=== PATIENT | male | born 1985 | race Caucasian/White ===

== ENCOUNTER 2020-05-23 08:12 | Emergency (ER) | payer OTHER, SELFPAY ==
--- NOTE | ~2020-05-23 | XR_ITS ---
EXAMINATION: XR chest 2V DATE: 05/23/2020 09:07 INDICATION: Upper back pain. TECHNIQUE: Frontal and lateral views of the chest were obtained. COMPARISON: None. FINDINGS: The chest demonstrates clear lungs without pneumonia, pleural effusion, or pneumothorax. Th e heart size is normal. IMPRESSION: 1. No acute cardiopulmonary disease. Reviewed, dictated and finalized at location A. HER
[2020-05-23 08:23] VITALS: BP 156/83; PULSE 78; RESP 18; TEMP 37.3; O2SAT 99
--- NOTE | 2020-05-23 09:10 | ED.BACK ---
HPI - Back Pain/Injury General Chief Complaint: Back Pain/Injury Stated Complaint: back pain Source: patient and RN notes reviewed Limitations: no limitations History of Present Illness HPI Narrative: The obese patient, remote ex-smoker/rare drinker, presents with thoracic back pain. 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 He came into work this morning after uneventful night and morning, and experienced the abrupt onset of upper/thoracic back pain while at rest. This hunched him over, unrelieved by 600mg Motrin 0700 and he was unable to drive himself here. No fever, cough, loss of taste/smell, precordial CP, calf pain/edema. Symptoms are mild worse with activity; vital signs remarkable for mild hypertension. [id number] urinalysis noncontributory, chest x-ray done unremarkable Related Data Allergies Allergy/AdvReac Type Severity Reaction Status Date / Time Penicillins Allergy Rash Verified 05/23/20 08:43 Review of Systems Review of Systems: Narrative: The patient has been informed that they may have pre-hypertension or Hypertension based on a BP reading in the department. I recommend that the patient call the primary care provider listed on their discharge instructions or a physician of their choice this week to arrange follow up for further evaluation of possible pre-hypertension or Hypertension General/Constitutional: No weight loss,fever Eyes: N0: Redness,discharge Ears/Nose/Throat: No: Epistaxis,ear discharge Respiratory: Denies: Hemoptysis Gastrointestinal: No Vomiting, Bleeding-rectal Skin: No Lumps, eruption Neurologic: No Focal Weakness,Sz Hematologic: Denies: Petechiae/Purpura Psychiatric: No: Suicida ideationl All Other Systems: Reviewed and Negative [facility] Comments At time of signature, agree with nursing past medical, surgical, social and family history. There is no relevant family history pertinent to the presenting complaint Exam Narrative: Exam Narrative: General Appearance: Obese appearing, mild pain EYE: PERRLA, Conjunctiva clear Ears: External ear normal Nose: Normal nose Mouth/Throat: Normal appearing, Normal lips Neck: Supple Respiratory: Airway patent, No respiratory distress, CTA distant sounds Cardiovascular: RRR, symmetric pulses Abdomen: Soft, Non-tender, Musculoskeletal: Full ROM, tender rhomboid on left Skin: Warm, Dry Neurological: A&O x3, CN II-X intact Psychiatric: Normal mood, Normal affect Course Course Emergency Course: Films visualized, interpreted by radiologist, agree, normal see report Vital Signs Vital signs: Vital Signs Temperature 99.2 F 05/23/20 08:23 Pulse Rate 78 05/23/20 08:23 Respiratory Rate 18 05/23/20 08:23 Blood Pressure 156/83 H 05/23/20 08:23 Pulse Oximetry 99 05/23/20 08:23 Temperature 99.2 F 05/23/20 08:23 Pulse Rate 78 05/23/20 08:23 Respiratory Rate 18 05/23/20 08:23 Blood Pressure 156/83 H 05/23/20 08:23 Pulse Oximetry 99 05/23/20 08:23 MDM - Back Pain/Injury Lab Data Labs: Urine Glucose Negative Reference Range: Negative Urine Bilirubin Negative Reference Range: Negative Urine Ketone Trace Reference Range: Negative Urine Specific [place] 1.025 Reference Range:1.001-1.035 Urine Blood Negative Reference Range: Negative * * Urine pH 7.0 Reference Range: 5.0-9.0 Urine Protein 1+ Reference Range: Negative Ur
[2020-05-23] MEDS: KETOROLAC (*BKC) 60 MG/2 ML VIAL IM (09:18)
[2020-05-23] MEDS: predniSONE 20 MG TABLET 40 MG PO (09:19)
== END 2020-05-23 10:12 | disposition short-term general hospital (02) ==
PROVIDERS: Emergency Provider Emergency Medicine
DX: M54.6 Pain in thoracic spine (principal)
CPT/HCPCS: 71046; 81003; 96372; 99213; G0463; J1885; J7512

== ENCOUNTER 2020-05-23 11:04 | Emergency (ER) | payer OTHER, SELFPAY ==
[2020-05-23 11:14] VITALS: BP 149/80; PULSE 73; RESP 18; TEMP 36.6; O2SAT 98
[2020-05-23 12:00] LABS: Basophils Percent Auto 0.3 % (0.2-1.2); Eosinophils Percent Auto 0.2 % (0-4.4); Hematocrit 49.3 % (42.0-52.0); Immature Granulocyte Absolute 0.02 K/mm3 (0.00-0.031); Immature Granulocyte Percent A 0.2 % (0-0.5); Lymphocytes Absolute Auto 0.95 K/mm3 (0.9-3.2); Lymphocytes Percent Auto 10.8 % (18.3-44.2); Mean Corpuscular HGB Conc 34.5 g/dl (32-36); Mean Corpuscular Hemoglobin 30.7 pg (26-34); Mean Corpuscular Volume 89.2 fl (80-100); Mean Platelet Volume 10.7 fl (7.4-10.4); Monocytes Absolute Auto 0.3 K/mm3 (0.1-0.6); Monocytes Percent Auto 3.5 % (2.6-8.5); Neutrophils Absolute Auto 7.4 K/mm3 (1.3-6.7); Platelet Count Result 236 k/mm3 (150-375); Red Blood Count 5.53 M/mm3 (4.6-6.20); Red Cell Distribution Width 12.7 % (11.5-14.5); White Blood Count 8.8 K/mm3 (4.5-10.0)
[2020-05-23 12:10] LABS: INR 0.9; Prothrombin Time 13.2 Seconds (11.1-14.7)
[2020-05-23 12:11] LABS: Partial Thromboplastin Time 28.7 SECONDS (22.3-36.8)
--- NOTE | 2020-05-23 12:13 | ED.BACK ---
HPI - Back Pain/Injury General Chief Complaint: Back Pain/Injury Stated Complaint: THORACIC BACK PAIN Time Seen by Provider: 05/23/20 11:38 Source: patient Mode of arrival: ambulatory Limitations: no limitations History of Present Illness HPI Narrative: This is a 34 year old male that presents to the ER for thoracic back pain that started this morning. Reports no injuries or trauma. The pain is worse with movement and deep breathing. Patient was seen at urgent care and sent for further evaluation to r/o PE. He was given steroid and Toradol with improvement. Reports a chronic cough. Denies fever, shortness of breath or chest pain. Related Data Allergies Allergy/AdvReac Type Severity Reaction Status Date / Time Penicillins Allergy Rash Verified 05/23/20 11:18 Review of Systems Review of Systems: Narrative: CONSTITUTIONAL: Denies fever CARDIOVASCULAR: Denies chest pain, or edema. RESPIRATORY: Reports cough. Denies dyspnea. GENITOURINARY: Denies dysuria or hematuria. SKIN: Denies rash MUSCULOSKELETAL: Reports back pain, joint pain, and myalgia. NEUROLOGIC: Denies numbness, or weakness. All systems reviewed & are unremarkable except as noted in HPI and below PMFSH Past Medical History Medical History (Updated 05/23/20 @ 13:47 by Cate Narayan PA-C) No active medical problems Social History Social History (Updated 05/23/20 @ 12:30 by Cate Narayan PA-C) Smoking status: Never smoker Substance use: never Exam Narrative: Exam Narrative: GENERAL: Well-appearing, well-nourished, and in no acute distress. HEAD: Normocephalic, atraumatic. EYES: EOMI. CHEST: Clear to auscultation. No respiratory distress. No wheezes rales or rhonchi HEART: Regular rate and rhythm. No murmur heard. Normal peripheral pulses. BACK: No midline spinal tenderness EXTREMITIES: Normal range of motion. No edema. Strength equal in bilateral upper extremities (5/5) SKIN: Warm, dry, no rash. NEURO: No focal deficits. Alert and oriented x3. PSYCH: Normal mood and affect Course Vital Signs Vital signs: Vital Signs Temperature 97.8 F 05/23/20 11:14 Pulse Rate 73 05/23/20 11:14 Respiratory Rate 18 05/23/20 11:14 Blood Pressure 149/80 H 05/23/20 11:14 Pulse Oximetry 98 05/23/20 11:14 Temperature 97.8 F 05/23/20 11:14 Pulse Rate 73 05/23/20 11:14 Respiratory Rate 18 05/23/20 11:14 Blood Pressure 149/80 H 05/23/20 11:14 Pulse Oximetry 98 05/23/20 11:14 MDM - Back Pain/Injury MDM Narrative Medical decision making narrative: Patient presents emergency department for thrush back pain since this morning. No known injury or trauma. He is neurologically intact. CBC and metabolic panel without concerning findings. CRP is not elevated. D-dimer is not elevated. Oxygen saturation is normal on room air. Chest x-ray done at urgent care is without acute cardiopulmonary findings. Patient updated on case findings. He reports improvement with Toradol and steroid given at urgent care this morning. He is stable and felt appropriate for further outpatient evaluation. He was given warnings to return to the ER Lab Data Attestation: I reviewed the patient's lab results. Result diagrams: 05/23/20 11:53 05/23/20 11:53 Labs: Lab Results 05/23/20 05/23/20 05/23/20 Range/Units 11:53 11:53 11:53 WBC 8.8 (4.5-10.0) K/mm3 RBC 5.53 (4.6-6.20) M/mm3 Hgb 17.0 (14.0-18.0) g/dL Hct 49.3 (42.0-52.0) % MCV 89.2 (80-100) fl MCH 30.7 (26-34) pg MCHC 34.5 (32-36) g/dl RDW 12.7 (11.5-14.5) % Plt Count 236 (150-375) k/mm3 MPV 10.7 H (7.4-10.4) fl Immature Gran % (Auto) 0.2 (0-0.5) % Neut % (Auto) 85.0 H (45.5-73.1) % Lymph % (Auto) 10.8 L (18.3-44.2) % [place] % (Auto) 3.5 (2.6-8.5) % Eos % (Auto) 0.2 (0-4.4) % Baso % (Auto) 0.3 (0.2-1.2) % Lymph # (Auto) 0.95 (0.9-3.2) K/mm3 [place] # (Auto) 0.3 (0.1-0.6) K/mm3
[2020-05-23 12:28] LABS: D Dimer 0.27 ug/mL (<0.48)
[2020-05-23 12:30] LABS: Anion Gap 8 mmol/L (8-16); Blood Urea Nitrogen 17 mg/dL (9-20); CRP 1.1 mg/dL (<1.0); Calcium 9.8 mg/dL (8.4-10.2); Carbon Dioxide 28 mmol/L (22-30); Chloride 104 mmol/L (98-107); Estimated CRCL calculation 146 ml/min; Estimated Glomerular Filt Rate > 60; Glucose 105 mg/dL (75-110); Potassium 4.5 mmol/L (3.4-5.0); Sodium 140 mmol/L (137-145)
[2020-05-23 13:58] VITALS: BP 148/76; PULSE 70; RESP 16; O2SAT 99
== END 2020-05-23 13:59 | disposition home or self-care (01) ==
PROVIDERS: Physician Assistant; Emergency Provider Emergency Medicine
DX: M54.6 Pain in thoracic spine (principal)
CPT/HCPCS: 36415; 80048; 85025; 85380; 85610; 85730; 86140; 99283